=== PATIENT | male | born 1940 | race Caucasian/White ===

== ENCOUNTER → 2020-08-31 | Outpatient (CLI) | payer MEDICARE, BC | END | disposition home or self-care (01) | LOC: CVU 09:26 | PROVIDERS: ATTEND Internal Medicine Cardiovascular Disease | DX: I08.3 Combined rheumatic disorders of mitral, aortic and tricuspid valves (principal); N28.1 Cyst of kidney, acquired; I25.810 Atherosclerosis of coronary artery bypass graft(s) without angina pectoris; I11.9 Hypertensive heart disease without heart failure; Z95.1 Presence of aortocoronary bypass graft | CPT/HCPCS: 93306; 93356; 93975 ==